=== PATIENT | male | born 1950 | race Caucasian/White ===

== ENCOUNTER → 2020-12-19 | Outpatient (CLI) | payer MEDICARE ==
--- NOTE | 2020-12-21 09:51 | US ---
EXAMINATION TYPE: US kidneys/renal and bladder DATE OF EXAM: 12/19/2020 COMPARISON: NONE CLINICAL HISTORY: R31.9 Hematuria. EXAM MEASUREMENTS: Right Kidney: 10.1 x 4.4 x 4.6 cm Left Kidney: 10.9 x 5.4 x 5.3 cm Right Kidney: No hydronephrosis or masses seen Left Kidney: Limited visualization. Visualized portions wnl Bladder: wnl Bilateral Jets seen: Yes There is no evidence for hydronephrosis at this point in time. No nephrolithiasis is seen. No ramana s are identified. The urinary bladder is anechoic. Bilateral ureteral jets are seen. IMPRESSION: No distinct abnormality seen.
== END | disposition home or self-care (01) ==
LOC: RADUSWWP 15:25
PROVIDERS: ATTEND Family Medicine
DX: R31.9 Hematuria, unspecified (principal)
CPT/HCPCS: 76770

== ENCOUNTER → 2021-02-05 | Outpatient (CLI) | payer MEDICARE ==
--- NOTE | 2021-02-05 09:41 | US ---
EXAMINATION TYPE: US carotid duplex BILAT DATE OF EXAM: 02/05/2021 COMPARISON: NONE CLINICAL HISTORY: 70-year-old male H54.7 Unspecified visual loss. Blurry episodes on and off, no h/o stroke TECHNIQUE: Carotid duplex ultrasound examination. Indirect Doppler criteria was utilized. FINDINGS: EXAM MEASUREMENTS: RIGHT: Peak Systolic Velocity (PSV) cm/sec ----- Right CCA: 89.5 ----- Right ICA: 149 ----- Right ECA: 113 ICA/CCA ratio: 1.6 RIGHT: End Diastole cm/sec ----- Right CCA: 19.8 ----- Right ICA: 35.1 ----- Right ECA: 21.2 LEFT: Peak Systolic Velocity (PSV) cm/sec ----- Left CCA: 83.4 ----- Left ICA: 114 ----- Left ECA: 117 ICA/CCA ratio: 1.4 LEFT: End Diastole cm/sec ----- Left CCA: 16.4 ----- Left ICA: 24.6 ----- Left ECA: 22.4 VERTEBRALS (direction of flow): Right Vertebral: Antegrade Left Vertebral: Antegrade Rhythm: Normal Automotive Consultant notes: Mild plaque seen at bulbs/ICA with no significant stenosis seen IMPRESSION: 1. Mildly elevated peak systolic velocity right ICA. However, the other parameters are normal. Findin gs may reflect a mild, less than 50% stenosis versus some turbulent flow. 2. No hemodynamically significant ICA stenosis on either side. Criteria for Assigning % of Stenosis / Diameter reduction (Estimation based on the indirect measurements of the internal carotid artery velocities (ICA PSV). 1. Normal (no stenosis)=ICA PSV < 125 cm/s: ratio < 2.0: ICA EDV<40 cm/s. 2. Less than 50% stenosis=ICA PSV < 125 cm/s: ratio < 2.0: ICA EDV<40 cm/s. 3. 50 to 69% stenosis=ICA PSV of 125 to 230 cm/s: ration 2.0 ? 4.0: ICA EDV 40-100 cm/s. 4. Greater than 70% stenosis to near occlusion= ICA PSV > 230 cm/s: ratio > 4.0: ICA EDV > 100 cm/s. 5. Near occlusion= ICA PSV velocities may be low or undetectable: variable ratio and ICA EDV. 6. Total occlusion=unable to detect flow.
== END | disposition home or self-care (01) ==
LOC: RADUSWWP 07:05
PROVIDERS: ATTEND Family Medicine
DX: H54.7 Unspecified visual loss (principal); H53.8 Other visual disturbances
CPT/HCPCS: 93880

== ENCOUNTER → 2021-03-02 | Outpatient (CLI) | payer MEDICARE ==
[2021-03-02 14:28] LABS: HCT 42.7 % (39.0-53.0); HGB 13.8 gm/dL (13.0-17.5); MCH 31.5 pg (25.0-35.0); MCHC 32.4 g/dL (31.0-37.0); MCV 97.1 fL (80.0-100.0); Mean Platelet Volume 9.5; Platelet Count 205 k/uL (150-450); RDW 11.9 % (11.5-15.5); WBC 6.9 k/uL (3.8-10.6)
[2021-03-02 14:37] LABS: Appearance,Urine Clear (Clear); Bilirubin,Urine Negative (Negative); Blood,Urine Small (Negative); Color,Urine Light Yellow; Glucose,Urine (UA) Negative (Negative); Ketones,Urine Negative (Negative); Leukocyte Esterase,Urine Negative (Negative); Mucus,Urine Rare /hpf; Nitrite,Urine Negative (Negative); Protein,Urine Negative (Negative); RBC,Urine 3 /hpf (0-5); Specific Gravity,Urine 1.008 (1.001-1.035); Urobilinogen,Urine <2.0 mg/dL (<2.0); WBC,Urine 1 /hpf (0-5)
[2021-03-02 14:38] LABS: INR 0.9 (<1.2); Partial Thromboplastin Time 23.7 sec (22.0-30.0); Prothrombin Time 10.1 sec (9.0-12.0)
[2021-03-02 14:49] LABS: ALT 23 U/L (4-49); AST 30 U/L (17-59); African American GFR (CKD) >90 (>60 ml/min/1.73 sqM); Albumin 4.7 g/dL (3.5-5.0); Alkaline Phosphatase 60 U/L (38-126); Anion Gap 11 mmol/L; Blood Urea Nitrogen 15 mg/dL (9-20); Calcium 9.8 mg/dL (8.4-10.2); Carbon Dioxide 27 mmol/L (22-30); Chloride 101 mmol/L (98-107); Glucose 73 mg/dL (74-99); Non-African American GFR(CKD) 89 (>60 ml/min/1.73 sqM); Potassium 4.2 mmol/L (3.5-5.1); Sodium 139 mmol/L (137-145); Total Bilirubin 1.4 mg/dL (0.2-1.3); Total Protein 8.1 g/dL (6.3-8.2)
== END | disposition home or self-care (01) ==
LOC: PAT 12:35
PROVIDERS: ATTEND Orthopaedic Surgery
DX: Z01.812 Encounter for preprocedural laboratory examination (principal); Z01.810 Encounter for preprocedural cardiovascular examination; M17.11 Unilateral primary osteoarthritis, right knee
CPT/HCPCS: 36415; 80053; 81001; 85027; 85610; 85730; 87070; 93005

== ENCOUNTER 2021-03-16 11:31 | Day surgery (SDC) | payer MEDICARE ==
[2021-03-13 09:32] VITALS: BMI 27.1
[~2021-03-16 11:31] MED LIST: HYDROmorphone 0.5 MG/0.5 ML SYRINGE IVP PRN; LACTATED RINGERS 1,000 ML IV SCH; MIDAZOLAM 2 MG/2 ML VIAL IV PRN; ONDANSETRON 4 MG/2 ML VIAL IVP ONE
[2021-03-16 12:13] LABS: Glucose,Whole Blood 91 mg/dL (75-99)
[2021-03-16] MEDS ORDERED: MIDAZOLAM 2 MG/2 ML VIAL IVP ONE (12:27)
[2021-03-16] MEDS ORDERED: fentaNYL (PF) 50 MCG/ML 2 ML AMP IVP ONE (12:27)
[2021-03-16] MEDS ORDERED: DEXAMETHASONE SOD PHOSPHATE 4 MG/ML 1 ML VIAL IVP ONE (12:31)
[2021-03-16] MEDS ORDERED: ePHEDrine 50 MG/ML 1 ML AMP ONE (12:41)
[2021-03-16] MEDS ORDERED: fentaNYL (PF) 50 MCG/ML 2 ML AMP ONE (12:41)
[2021-03-16] MEDS ORDERED: GLYCOPYRROLATE 0.2 MG/ML 2 ML VIAL ONE (12:41)
[2021-03-16] MEDS ORDERED: SODIUM CHLORIDE 0.9% (PF) 10 ML VIAL ONE (12:41)
[2021-03-16] MEDS ORDERED: HYDROmorphone (PF) 1 MG/ML ONE (12:41)
[2021-03-16] MEDS ORDERED: ROCURONIUM 10 MG/ML (5 ML VIAL) IV ONE (12:41)
[2021-03-16] MEDS ORDERED: ROPIVACAINE 5 MG/ML 30 ML VIAL ONE (12:41)
[2021-03-16] MEDS ORDERED: LIDOCAINE 1% INJ 10MG/ML (20 ML MDV) ONE (12:41)
[2021-03-16] MEDS ORDERED: NEOSTIGMINE 1 MG/ML 10 ML VIAL ONE (12:41)
[2021-03-16] MEDS ORDERED: SUCCINYLCHOLINE CHLORIDE 100 MG/5 ML SYR IV ONE (12:41)
[2021-03-16] MEDS ORDERED: PROPOFOL 10 MG/ML 20 ML VIAL IV ONE (12:41)
[2021-03-16] MEDS ORDERED: MIDAZOLAM 2 MG/2 ML VIAL ONE (12:41)
[2021-03-16] MEDS ORDERED: ceFAZolin 3,000 MG in SODIUM CHLORIDE 0.9% IRRIGATIO 3,000 ML IRRIGATION ONE (12:46)
--- NOTE | 2021-03-16 12:49 | P.ANPRN ---
Procedure Note - Anesthesia - Nerve Block Performed Right Adductor Canal Infusion Time Out Performed: Yes ([id number]) Date of Procedure: 03/16/21 Procedure Start Time: 12:27 Procedure Stop Time: 12:32 Location of Patient: PreOp Indication: Acute Post-Operative Pain, Requested by Surgeon Specifically requested for management of pain by DrRo: Kunal Novoa Sedation Type: Sedate with meaningful contact maintained Preparation: Sterile Prep, Sterile Dressing Position: Supine Catheter Depth at Skin (cm): 7 Catheter: Indwelling Needle Types: Pajunk Needle Gauge: 21 Ultrasound used to visualize needle placement: Yes Ultrasound used to observe medication spread: Yes Injectate: 0.5% Ropivacaine (see comment for volume) (15cc + 5cc NACL PF) Blood Aspirated: No Pain Paresthesia on Injection Noted: No Resistance on Injection: Normal Image Stored and Saved: Yes Events: Uneventful and Well Tolerated Right iPack Single Time Out Performed: Yes Date of Procedure: 03/16/21 Procedure Start Time: 12:33 Procedure Stop Time: 12:37 Location of Patient: PreOp Indication: Acute Post-Operative Pain, Requested by Surgeon Specifically requested for management of pain by Dr.: Kunal Novoa Sedation Type: Sedate with meaningful contact maintained Preparation: Sterile Prep Position: Supine Catheter: None Needle Types: Pajunk Needle Gauge: 21 Ultrasound used to visualize needle placement: Yes Ultrasound used to observe medication spread: Yes Injectate: 0.5% Ropivacaine (see comment for volume) (15cc + NACL 5cc PF) Blood Aspirated: No Pain Paresthesia on Injection Noted: No Resistance on Injection: Normal Image Stored and Saved: Yes Events: Uneventful and Well Tolerated
--- NOTE | 2021-03-16 14:01 | P.OP ---
Date of Procedure: 03/16/21 Procedure(s) Performed: PREOPERATIVE DIAGNOSIS: 1. 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 ANESTHESIA: General ESTIMATED BLOOD LOSS: Less than 50 ml. SUPPLIER QUALITY: Vianey Beach PA-C (assistance with: patient positioning, retraction, exposure, hemostasis, leg positioning, implantation, irrigation, closure, d ressing) COMPLICATIONS: None apparent. COMPONENTS IMPLANTED: Journey I tibial insert, size 5-6, thickness 13 mm BCS revision INDICATIONS: Brayan is a 70-year-old male with a history of right knee replacement several years ago by Dr. Hayes. Over the past several years he has been having progressive problems with the right knee, and x-rays have shown no significant issues with the cemented components. I suspect that he has a broken post for a posterior stabilized knee, causing anterior to posterior instability. The operation of knee replacement revision of the tibial spacer has been di scussed at length in the office, as well as potential risks and complications. These are inclusive of, but not limited to: bleeding, infection, scarring, discomfort, blood vessel and nerve damage, need for further surgery, failure to relieve symptoms, persistence, recurrence, or worsening of problems, loosening, dislocation, wear, blood clot, pulmonary embolism, , gait dysfunction, stiffness, and other risks as discussed in the office. The patient elects to proceed and the consent form has been signed. PROCEDURE: The patient was taken to the operating room and positioned on the operating room table in the supine position. Anesthesia was initiated. Care was taken to make sure that all pressure points were adequately padded. The operative lower extremity was prepped and draped in the usual aseptic fashion using ChloraPrep. Ioban drape was used for the case and the patient received intravenous antibiotics within one hour of the incision. A pneumotourniquet and leg fierro were used for the case. The limb was exsanguinated with an Esmarch bandage and the tourniquet was inflated to 250 mmHg. Time-out was called confirming the patient's identity, side, procedure and administration of antibiotics. The incision was then created midline directly over the previous incision, carried down through skin and into the subcutaneous tissues and down to fascia. Full thickness subcutaneous medial flap was developed. Medial parapatellar arthrotomy without need for quadricep snip was performed and the interior of the knee was inspected. There was moderate synovial hypertrophy especially noted within the suprapatellar pouch. Femoral component and tibial component were stable. Tibial insert had a broken post, the loose fragment which was ensconced within the superior aspect of the femoral component box. Partial synovectomy was performed. Tibial insert was easily removed and sized. Cultures 2 were taken both within the fluid that was removed as well as deep on the posterior tissue between the femoral component and the tibial component. There was no evidence of infection, but normal-appearing synovial tissue in this region was removed to prevent any synovial entrapment during placement of the revision spacer. The tibial component was evaluated for stability with a combination of manual pressure on the component itself, and gentle osteotome evaluation around the p eriphery. There was no evidence of an unstable tibial component with any maneuver. The knee was kept in extension and the patella was everted. Soft tissue was removed and the bone-implant interface was evaluated and found to be completely stable. Attention was then directed to the placement of the final tibial insert. The thickness of the tibial insert was increased to 13 mm because this seemed to provide better stability medial lateral and mid flexion based on trial evaluation. The final tibial insert was then placed and locked into position. Patellar tracking was noted to be excellent without need for a formal lateral release. Range of motion showed 0-130 motion with excellent stability. Medial lateral stability was normal and there was no evidence of instability in flexion. Thorough irrigation was performed and tourniquet was deflated. Hemostasis was obtained using electrocautery and IV tranexamic acid, 1 g given during closing. The knee capsule and fascia, was closed in 90 of flexion with # 3 Ethibond, followed by Quill type suture. Subcutaneous closure was performed using 2-0 Vicryl suture followed by Quill type suture in the subcutaneous tissues and Exofin closure for the skin followed by Optifoam adherent dressing. A lightly compressive dressing was applied using Webril and an Pavel wrap. The patient was then transferred to stretcher and taken to the recovery room in stable condition. Sponge and needle counts were correct.
[2021-03-16] MEDS ORDERED: LACTATED RINGERS 1,000 ML IV ONE (14:04)
[2021-03-16 14:30] VITALS: TEMP 97
[2021-03-16 14:52] VITALS: RESP 16
[2021-03-16] MEDS ORDERED: ROPIVACAINE 0.2%-NS ON-Q PUMP 1,090 MG, EMPTY PAIN BALL 1 EACH MISCELLANE PRN (15:18)
--- NOTE | 2021-03-16 15:25 | XR ---
EXAMINATION TYPE: XR knee limited RT DATE OF EXAM: 03/16/2021 COMPARISON: NONE TECHNIQUE: Two views submitted HISTORY: Post op FINDINGS: There is a prosthetic knee in near anatomic alignment. There is soft tissue edema and emphysema. IMPRESSION: 1. Postoperative change. Appears in near-anatomic alignment
[2021-03-16 16:15] VITALS: BP 161/88; PULSE 83
== END 2021-03-16 17:17 | disposition home or self-care (01) ==
LOC: OR 11:31
PROVIDERS: ATTEND Orthopaedic Surgery
DX: T84.092A Other mechanical complication of internal right knee prosthesis, initial encounter (principal); Z96.651 Presence of right artificial knee joint; Z20.822 Contact with and (suspected) exposure to COVID-19
CPT/HCPCS: 27486; 64999; 64448; 76942; 87070; 87205; 87075; 87635; 73560; C1713; J2250; J1100; J2710; J0690 ×2; J2405; J2001; J3010; J1170; J2795 ×2; J0330; J2704

== ENCOUNTER → 2021-07-01 | Outpatient (CLI) | payer MEDICARE ==
--- NOTE | 2021-07-01 08:07 | MR ---
EXAMINATION TYPE: MR angio head wo con DATE OF EXAM: 07/01/2021 COMPARISON: Outside brain MRI March 14, 2021 HISTORY: Hx of aneurysm, f/u TECHNIQUE: Time of flight images focusing on the [place] of [place] were performed without contrast.. 2-D and 3-D postprocessing imaging is performed on independent workstation and reviewed. FINDINGS: Vertebral arteries are codominant and patent to basilar junction. No significant focal sten osis or aneurysmal change in posterior circulation. Small caliber but patent bilateral posterior comm unicating arteries are seen. Images of the anterior circulation show aneurysm at level of the anterior communicating artery seen b est image 78 near the right-sided origin with the right A2 segment junction. This measures 5.3 x 4.6 mm. Remainder of the anterior circulation shows no significant focal stenosis or aneurysm. 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 Correlate clinically with ol d outside imaging.
== END | disposition home or self-care (01) ==
LOC: RADMRIMAIN 05:59
PROVIDERS: ATTEND Neurological Surgery
DX: I67.1 Cerebral aneurysm, nonruptured (principal)
CPT/HCPCS: 70544